=== PATIENT | male | born 1995 | race African-American/Black ===

== ENCOUNTER 2020-01-08 05:44 | Emergency (ER) | payer BC, OTHER ==
[~2020-01-08] VITALS: Ht 167.6 cm; Wt 54.4 kg
[2020-01-08 06:04] LABS: HEMATOCRIT 43.3 % (42.0-52.0); HEMOGLOBIN 14.2 gm/dL (14.0-18.0); MCH 29.3 pg (26.0-34.0); MCHC 32.8 g/dL (28.0-37.0); MCV 89.2 fL (80.0-100.0); RBC 4.85 mil/uL (4.50-6.00)
[2020-01-08 06:15] LABS: CALCIUM 8.7 mg/dL (8.5-10.1); CREATININE 1.1 mg/dL (0.7-1.3); MAGNESIUM 2.4 mg/dL (1.8-2.4); POTASSIUM 3.4 mmol/L (3.5-5.1)
--- NOTE | 2020-01-08 07:40 | EKG ---
[facility] [place] [address] ELECTROCARDIOGRAM REPORT Name: SKYLER YEUNG Room #: [facility]#: [id number] Admission: 01/08/20 Attend Phys: Discharge: Date of : [birth year] Report #: [id number] THIS REPORT FOR: cc: JOE - Suzette family physician/PCP JOE - Suzette family physician/PCP Casimiro Santana MD [facility] ~ THIS REPORT FOR: //name// [facility] ED Test Date: 2020-01-08 Test Time: 06:07:08 Pat Name: SKYLER YEUNG Department: Room: Gender: M [employer] Regulator: : 1995 Requested By: Dontae Holguin Order Number: [id number] MD: Casimiro Santana Measurements Intervals [place] Rate: 84 P: 73 AL: 181 QRS: 56 QRSD: 91 T: 53 QT: 348 QTc: 412 Interpretive Statements Sinus rhythm Diffuse ST segment elevation consider early repolarization versus pericarditis No previous ECG available for comparison Electronically Signed On 01-08-2020 7:39:58 CDT by Casimiro Santana [email or web address] <ELECTRONICALLY SIGNED> By: Casimiro Santana MD, [facility] 01/08/20 [id number] Casimiro Santana MD, FACC /EPI
[2020-01-08 07:47] VITALS: BP 122/54
== END 2020-01-08 07:41 | disposition home or self-care (01) ==
LOC: ER 05:44
PROVIDERS: Emergency Medicine
DX: R56.9 Unspecified convulsions (principal); R41.0 Disorientation, unspecified

== ENCOUNTER 2020-06-20 05:32 | Emergency (ER) | payer BC ==
[~2020-06-20] VITALS: Ht 177.8 cm; Wt 50.4 kg
[2020-06-20] MEDS ORDERED: KEPPRA 500 MG500 M1 PO (06:05)
[2020-06-20 06:06] LABS: CALCIUM 9.4 mg/dL (8.5-10.1); CREATININE 1.3 mg/dL (0.7-1.3); MAGNESIUM 2.5 mg/dL (1.8-2.4)
[2020-06-20 06:10] LABS: POTASSIUM 4.5 mmol/L (3.5-5.1)
[2020-06-20 06:39] LABS: URINE BILIRUBIN NEGATIVE (Negative); URINE BLOOD NEGATIVE (Negative); URINE CLARITY CLEAR; URINE COLOR YELLOW; URINE GLUCOSE-RANDOM* NEGATIVE (Negative); URINE KETONES TRACE (Negative); URINE LEUKOCYTES-REFLEX NEGATIVE (Negative); URINE NITRITE-REFLEX NEGATIVE (Negative); URINE PROTEIN (DIPSTICK) 1+ (Negative); URINE SPECIFIC GRAVITY >= 1.030 (1.005-1.035)
[2020-06-20 06:47] LABS: BACTERIA-REFLEX None Seen /HPF (None Seen); CASTS None Seen /LPF (None Seen); CRYSTALS None Seen /LPF (None Seen); MUCUS 0-3 Light strn/LPF (None Seen); SQUAMOUS None Seen /LPF (0-3); URINE RBC None Seen /HPF (0-2); URINE WBC-REFLEX 0-5 Rare /HPF (0-5)
[2020-06-20 07:00] LABS: ABSOLUTE NEUTROPHILS 3.8 thou/uL (1.4-8.2); BASOPHILS 0.3 % (0.0-2.0); EOSINOPHILS 1.7 % (0.0-3.0); HEMATOCRIT 41.8 % (42.0-52.0); HEMOGLOBIN 13.6 gm/dL (14.0-18.0); LYMPHOCYTES 25.2 % (24.0-44.0); MCH 28.5 pg (26.0-34.0); MCHC 32.6 g/dL (28.0-37.0); MCV 87.6 fL (80.0-100.0); MONOCYTES 7.6 % (1.0-8.0); PLATELET COUNT 235 thou/uL (150-400); POLYS 65.2 % (36.0-66.0); RBC 4.77 mil/uL (4.50-6.00); RDW 13.2 % (10.5-14.5); WBC 5.9 thou/uL (4.0-11.0)
[2020-06-20 07:18] VITALS: BP 121/70
== END 2020-06-20 07:18 | disposition home or self-care (01) ==
LOC: ER 05:32
PROVIDERS: Emergency Medicine
DX: R56.9 Unspecified convulsions (principal)